=== PATIENT | female | born 1995 | race Caucasian/White ===

== ENCOUNTER 2023-12-25 17:17 | Emergency (ER) | payer BC ==
[~2023-12-25] VITALS: Ht 165.1 cm; Wt 90.9 kg
[~2023-12-25 17:17] MED LIST: NORCO 325 MG-51 TAB PO
[2023-12-25 17:27] VITALS: TEMP 98.4
[2023-12-25] MEDS ORDERED: NS 1,000 ML IV ONE (17:45)
[2023-12-25] MEDS ORDERED: Metoclopramide 10 MG TAB PO ONE (18:30)
[2023-12-25 18:38] LABS: ALBUMIN 3.8 g/dL (3.5-5.0); BILIRUBIN,TOTAL 0.2 mg/dL (0.2-1.2); CALCIUM 9.7 mg/dL (8.4-10.2); CREATININE, serum 0.83 mg/dL (0.57-1.11); POTASSIUM 3.7 mEq/L (3.5-4.5); TOTAL PROTEIN 7.7 g/dl (6.2-8.1)
[2023-12-25 18:40] LABS: BASO # 0.1 K/mm3 (0.0-0.2); BASO % 0.4 % (0.0-2.0); EOS # 0.1 K/mm3 (0.0-0.7); EOS % 0.3 % (0.0-4.0); GRAN # 12.7 K/mm3 (1.4-6.5); GRAN % 78.7 % (42.2-75.2); HEMATOCRIT 41.1 % (37.0-47.0); HEMOGLOBIN 13.7 g/dl (12.5-16.0); LYMPH # 2.4 K/mm3 (1.2-3.4); LYMPH % 14.9 % (20.0-51.0); MEAN CELL VOLUME 91 fl (80.0-100.0); MEAN CORPUSCULAR HEMOGLOBIN 30 pg (27-31); MEAN CORPUSCULAR HGB CONC 33 g/dl (33.0-37.0); MEAN PLATELET VOLUME 9.7 fl (7.4-10.4); MONO # 0.9 K/mm3 (0.1-0.6); MONO % 5.3 % (1.7-9.3); PLATELET COUNT 281 K/mm3 (130-400); RED BLOOD COUNT 4.51 M/mm3 (4.10-5.30); REDCELL DISTRIBUTION WIDTH-CV 13.2 % (11.5-14.5)
[2023-12-25 19:12] LABS: COLLECTION METHOD CLEAN CATCH
[2023-12-25 19:25] LABS: PH 6.5 (5.0-8.5); URINE APPEARANCE CLEAR (CLEAR/HAZY); URINE BLOOD NEGATIVE (NEGATIVE); URINE COLOR YELLOW (YELLOW); URINE GLUCOSE NEGATIVE (NEGATIVE); URINE KETONE NEGATIVE (NEGATIVE); URINE NITRATE NEGATIVE (NEGATIVE); URINE PROTEIN(semi-quant) NEGATIVE (NEGATIVE); URINE UROBILINOGEN 0.2 E.U/dL (0.2-1.0)
[2023-12-25] MEDS ORDERED: REGLAN 10MG10 MG/TAB PO (19:31)
[2023-12-25 19:48] VITALS: BP 108/58; PULSE 87
== END 2023-12-25 20:39 | disposition home or self-care (01) ==
LOC: COL.ER 17:17
PROVIDERS: Physician Assistant
DX: O21.9 Vomiting of pregnancy, unspecified (principal); Z3A.01 Less than 8 weeks gestation of pregnancy
CPT/HCPCS: J2765; J7030

== ENCOUNTER 2024-05-04 13:54 | Emergency (ER) | payer OTHER ==
[~2024-05-04] VITALS: Ht 165.1 cm; Wt 93.2 kg
[~2024-05-04 13:54] MED LIST changes: +REGLAN 10MG10 MG/TAB PO
[2024-05-04 14:00] VITALS: TEMP 98.2
[2024-05-04] MEDS ORDERED: LR 1,000 ML IV ONE (14:15)
--- NOTE | 2024-05-04 15:00 | NUR ---
NST FOR PT IN ED FOR FLUIDS DUE TO DEHYDRATION OBTAINED BY LUCINDA GALVAN.
[2024-05-04 16:50] VITALS: BP 102/68; PULSE 92
== END 2024-05-04 16:52 | disposition home or self-care (01) ==
LOC: COL.ER 13:54
DX: O99.282 Endocrine, nutritional and metabolic diseases complicating pregnancy, second trimester (principal); E86.0 Dehydration; Z3A.26 26 weeks gestation of pregnancy
CPT/HCPCS: J7120

== ENCOUNTER 2024-07-26 09:16 | Outpatient (CLI) | payer OTHER ==
[~2024-07-26] VITALS: Ht 167.6 cm; Wt 98.2 kg
[~2024-07-26 09:16] MED LIST changes: +NATURAL IRON65 MG; +PRENATAL TABLET PO
--- NOTE | 2024-07-26 09:25 | NUR ---
PT AMBULATED TO ROOM AND CHANGED INTO GOWN. PT HERE FOR DECREASED MOVEMENT. PT WAS PLACED ON MONITORS. PT DENIES LOF OR VB. PT IS NOT FEELING CTX AT THIS TIME. VS WNL.
--- NOTE | 2024-07-26 09:45 | NUR ---
CALLED DR ELLINGTON ABOUT PT. PT IS A PRIME PT OF DR DIXON'S THAT CAME IN BECAUSE SHE WAS NOT FEELING BABY MOVE VERY MUCH. BABY IS ON THE MONITOR, FHT 135'S WITH ACCELS NO DECELS AND HAS MODERATE VARIABLITY. ARE YOU WANTING TO RUN AN NST OR WOULD YOU LIKE MORE THAN THAT? BABY HAS BEEN ON THE MONITOR FOR ABOUT [address] ELLINGTON SAID THAT AN NST IS GOOD. HAVE THE PT DRINK SOME JUICE AND SEE IS SHE FEELS MORE AFTER THE JUICE. DR ELLINGTON ALSO SAID TO MAKE SURE THE PT IS COMFORTABLE WITH WHAT IS GOING ON, IF WE NEED TO DO A 40 MINUTES NST THAT IS OKAY TOO.
[2024-07-26 10:02] VITALS: BP 119/69; PULSE 103; TEMP 98.1
[2024-07-26] MEDS ORDERED: LR 1,000 ML IV PRN (10:15)
--- NOTE | 2024-07-26 10:20 | NUR ---
PT AMBULATED OFF THE UNIT. AFTER DRINKING SOME APPLE JUICE AND FEELING MORE MOVEMENT PT WAS COMFORTABLE GOING HOME. THIS RN ENCOURAGED PT TO CONTINUE DOING KICK COUNTS AND COME BACK IF SHE IS CONCERNED.
== END 2024-07-26 10:20 | disposition home or self-care (01) ==
LOC: LDRO 09:16
DX: O36.8130 Decreased fetal movements, third trimester, not applicable or unspecified (principal); Z3A.37 37 weeks gestation of pregnancy